=== PATIENT | male | born 1950 | race African-American/Black ===

== ENCOUNTER 2017-02-25 08:47 | Inpatient (IN) | payer BC, MEDICARE ==
[2017-02-25] VITALS (42 sets, daily range): BP systolic 61–139; BP diastolic 36–99
[~2017-02-25] VITALS: Ht 172.7 cm; Wt 59.0 kg
[~2017-02-25 08:47] MED LIST: ASPI-986 PO
[2017-02-25] MEDS ORDERED: DEXTROSE 50% WATER 50ML SYRINGE IV ONE ×3 (09:00→09:03)
[2017-02-25] MEDS ORDERED: SODIUM CHLORIDE 0.9% 1,000 ML IV ONE ×2 (09:10→10:11)
[2017-02-25 09:19] LABS: MEAN CORPUSCULAR HEMOGLOBIN 31.9 pg (28.0-32.0); MEAN CORPUSCULAR VOLUME 106.5 fL (80.0-94.0); MEAN PLATELET VOLUME 8.1 fl (7.4-10.4); PLATELET 131 x1000/uL (130-400); RED BLOOD CELL COUNT 2.81 mill/uL (4.7-6.1); RED CELL DISTRIBUTION WIDTH 17.9 % (11.6-14.6)
[2017-02-25 09:27] LABS: INR 1.4; PROTHROMBIN TIME 14.8 sec (9.4-11.6)
[2017-02-25] MEDS ORDERED: VANCOMYCIN 1 G PREMIX 200 ML IV ONE (09:30)
[2017-02-25] MEDS ORDERED: PIPERACILLIN/TAZ 3.375G PREMIX 50 ML IV ONE (09:30)
[2017-02-25 09:36] LABS: CHLORIDE 86 mEq/L (98-107)
[2017-02-25 09:40] LABS: NUCLEATED RED BLOOD CELLS 85 /100 WBC; PLATELET ESTIMATE NORMAL
[2017-02-25 09:48] LABS: CARBON DIOXIDE 9 mEq/L (21-32)
[2017-02-25] MEDS ORDERED: NOREPINEPHRINE 4 MG in DEXT 5% WATER 250 ML IV STA (10:20)
[2017-02-25] MEDS ORDERED: NOREPINEPHRINE 4 MG in DEXT 5% WATER 250 ML IV NR (10:30)
[2017-02-25] MEDS ORDERED: IPRATROPIUM/ALBUTEROL 0.5-3(2.5)MG/3ML NEB INH PRN (15:00)
[2017-02-25] MEDS ORDERED: ONDANSETRON HCL 4MG/2ML VIAL IV PRN (15:00)
[2017-02-25] MEDS: NOREPINEPHRINE 8 MG in DEXT 5% WATER 242 ML IV PRN ×2 (15:04→21:02)
[2017-02-25] MEDS: BLOOD SUGAR DIAGNOSTIC STRIP TEST SCH ×3 (15:26→23:13)
[2017-02-25] MEDS ORDERED: SODIUM CHLORIDE 0.9% 1,000 ML IV SCH ×2 (15:45→17:54)
[2017-02-25] MEDS: PANTOPRAZOLE SODIUM 40 MG/VIAL IV SCH ×2 (15:51→20:10)
[2017-02-25 15:57] LABS: CHLORIDE 96 mEq/L (98-107)
[2017-02-25 16:01] LABS: PHOSPHORUS 6.1 mg/dL (2.5-4.9)
[2017-02-25 16:08] LABS: CARBON DIOXIDE 9 mEq/L (21-32)
[2017-02-25 16:27] LABS: BG BASE EXCESS -17.9 mmol/L (-2.0-2.0); BG CARBOXYHEMOGLOBIN 0.1 % (0.5-1.5); BG DEOXYHEMOGLOBIN 5.2 % (0.0-5.0); BG FRACTION INSPIRED OXYGEN 21; BG METHEMOGLOBIN 0.5 % (0.0-1.5); BG OXYGEN SATURATION 94.8 % (92.0-98.5); BG OXYHEMOGLOBIN 94.2 % (94.0-97.0); BG PCO2 16.1 mmHg (35.0-45.0); BG PH 7.254 (7.350-7.450); BG PO2 76.1 mmHg (75.0-100.0); BG SAMPLE SITE LEFT BRACHIAL; BG TOTAL HEMOGLOBIN 11.3 g/dL (12.0-18.0); BG VENT MODE ROOM AIR
[2017-02-25] MEDS ORDERED: THIAMINE HCL 100 MG in SODIUM CHLORIDE 0.9% 49 ML IV NR (17:00)
[2017-02-25 17:19] LABS: MEAN CORPUSCULAR HEMOGLOBIN 32.5 pg (28.0-32.0); MEAN PLATELET VOLUME 8.4 fl (7.4-10.4); PLATELET 126 x1000/uL (130-400); RED BLOOD CELL COUNT 3.43 mill/uL (4.7-6.1); RED CELL DISTRIBUTION WIDTH 17.4 % (11.6-14.6)
[2017-02-25] MEDS ORDERED: MAGNESIUM 1 G PREMIX 100 ML IV NR (17:20)
[2017-02-25 17:28] LABS: HEMOGLOBIN. 11.2 g/dL (14.0-18.0)
[2017-02-25 17:29] LABS: HEMATOCRIT. 34.9 % (42.0-52.0); MEAN CORPUSCULAR VOLUME 101.7 fL (80.0-94.0)
[2017-02-25] MEDS ORDERED: SODIUM BICARBONATE 8.4% 1 MEQ/ML 50ML SYR IV NR (17:30)
[2017-02-25] MEDS ORDERED: LORAZEPAM 2MG/ML CPJ IV PRN (17:30)
[2017-02-25] MEDS: PIPERACILLIN/TAZ 2.25G PREMIX 50 ML IV SCH (17:46)
[2017-02-25] MEDS: INSULIN LISPRO 100 UNITS/ML SUBCUT SCH ×2 (17:48→20:21)
[2017-02-25] MEDS ORDERED: SODIUM BICARBONATE 100 MEQ in DEXTROSE 5% WATER 1,000 ML IV SCH (18:00)
[2017-02-25 18:03] LABS: HEPATITIS B SURFACE ANTIGEN NEGATIVE
[2017-02-25 18:31] LABS: HEPATITIS B CORE AB IGM NEGATIVE
[2017-02-25 18:33] LABS: HEPATITIS A AB IGM NEGATIVE (NEGATIVE)
[2017-02-25] MEDS: OCTREOTIDE 1,000 MCG in SODIUM CHLORIDE 0.9% 100 ML IV SCH (18:47)
[2017-02-25 20:15] LABS: NUCLEATED RED BLOOD CELLS 276 /100 WBC
[2017-02-25 20:16] LABS: PLATELET ESTIMATE DECREASED
[2017-02-25] MEDS: SODIUM BICARBONATE 100 MEQ in DEXTROSE 5% WATER 1,000 ML IV SCH (20:31)
[2017-02-25] MEDS ORDERED: NOREPINEPHRINE 16 MG in DEXT 5% WATER 484 ML IV PRN (20:45)
[2017-02-25 20:47] LABS: HEMATOCRIT 31.8 % (42.0-52.0); HEMOGLOBIN 10.5 g/dL (14.0-18.0)
[2017-02-25] MEDS: METRONIDAZOLE 500 MG PREMIX 100 ML IV SCH (21:14)
[2017-02-26] VITALS (94 sets, daily range): BP systolic 75–151; BP diastolic 50–110
[2017-02-26] MEDS: PIPERACILLIN/TAZ 2.25G PREMIX 50 ML IV SCH ×5 (00:02→23:25)
[2017-02-26 00:56] LABS: CLARITY URINE TURBID (CLEAR); COLOR URINE DARK YELLOW (YELLOW); GLUCOSE URINE TRACE (NEGATIVE); KETONES URINE 1+ (NEGATIVE); LEUKOCYTE ESTERASE URINE 1+ (NEGATIVE); NITRITE URINE NEGATIVE (NEGATIVE); OCCULT BLOOD URINE 3+ (NEGATIVE); PROTEIN URINE 3+ (NEGATIVE); SPECIFIC GRAVITY URINE 1.024 (1.005-1.030)
[2017-02-26 00:58] LABS: HEMATOCRIT 30.2 % (42.0-52.0); HEMOGLOBIN 10.2 g/dL (14.0-18.0)
[2017-02-26] MEDS: BLOOD SUGAR DIAGNOSTIC STRIP TEST SCH ×6 (03:19→23:21)
[2017-02-26 04:15] LABS: HEMATOCRIT. 29.9 % (42.0-52.0); HEMOGLOBIN. 9.8 g/dL (14.0-18.0); MEAN CORPUSCULAR HEMOGLOBIN 32.2 pg (28.0-32.0); MEAN CORPUSCULAR VOLUME 98.3 fL (80.0-94.0); MEAN PLATELET VOLUME 8.5 fl (7.4-10.4); PLATELET 91 x1000/uL (130-400); RED BLOOD CELL COUNT 3.04 mill/uL (4.7-6.1); RED CELL DISTRIBUTION WIDTH 17.9 % (11.6-14.6)
[2017-02-26 04:17] LABS: CHLORIDE 94 mEq/L (98-107)
[2017-02-26 04:33] LABS: CARBON DIOXIDE 23 mEq/L (21-32)
[2017-02-26 04:47] LABS: CREATINE KINASE 1462 IU/L (39-308)
[2017-02-26 04:49] LABS: PHOSPHORUS 0.8 mg/dL (2.5-4.9)
[2017-02-26] MEDS: METRONIDAZOLE 500 MG PREMIX 100 ML IV SCH ×2 (05:56→13:23)
[2017-02-26 06:18] LABS: NUCLEATED RED BLOOD CELLS 87 /100 WBC
[2017-02-26 06:19] LABS: PLATELET ESTIMATE DECREASED
[2017-02-26 06:45] LABS: BG BASE EXCESS -0.3 mmol/L (-2.0-2.0); BG CARBOXYHEMOGLOBIN 0.6 % (0.5-1.5); BG DEOXYHEMOGLOBIN 6.1 % (0.0-5.0); BG FRACTION INSPIRED OXYGEN 21; BG HCO3 ACT 22.1 mmol/L (22.0-26.0); BG METHEMOGLOBIN 0.9 % (0.0-1.5); BG OXYGEN SATURATION 93.8 % (92.0-98.5); BG OXYHEMOGLOBIN 92.4 % (94.0-97.0); BG PCO2 28.7 mmHg (35.0-45.0); BG PH 7.505 (7.350-7.450); BG PO2 65.2 mmHg (75.0-100.0); BG SAMPLE SITE RIGHT BRACHIAL; BG TOTAL HEMOGLOBIN 9.9 g/dL (12.0-18.0); BG VENT MODE ROOM AIR
[2017-02-26] MEDS: SODIUM BICARBONATE 100 MEQ in DEXTROSE 5% WATER 1,000 ML IV SCH (07:49)
[2017-02-26] MEDS ORDERED: SODIUM CHLORIDE 0.9% 1,000 ML IV SCH (08:00)
[2017-02-26] MEDS: PANTOPRAZOLE SODIUM 40 MG/VIAL IV SCH ×2 (08:24→20:17)
[2017-02-26] MEDS: LORAZEPAM 2MG/ML CPJ IV SCH ×3 (08:24→19:00)
[2017-02-26] MEDS: INSULIN LISPRO 100 UNITS/ML SUBCUT SCH ×4 (08:26→23:25)
[2017-02-26] MEDS: [UNRECOGNIZED DRUG - REMARK] IV SCH ×3 (09:08)
[2017-02-26] MEDS ORDERED: POTASSIUM PHOS,M-BASIC-D-BASIC 15 MMOL in DEXT 5% WATER 245 ML IV NR (09:30)
[2017-02-26] MEDS ORDERED: MAGNESIUM 2 G PREMIX 50 ML IV NR (09:30)
[2017-02-26 09:59] LABS: T4 FREE 1.59 ng/dL (0.76-1.46)
[2017-02-26 10:07] LABS: HEMOGLOBIN 9.6 g/dL (14.0-18.0)
[2017-02-26 10:21] LABS: AMMONIA 31 uMol/L (<32)
[2017-02-26 12:45] LABS: HEMATOCRIT 30.2 % (42.0-52.0); HEMOGLOBIN 10.1 g/dL (14.0-18.0)
[2017-02-26 13:07] LABS: CLARITY URINE CLOUDY (CLEAR); COLOR URINE YELLOW (YELLOW); GLUCOSE URINE TRACE (NEGATIVE); KETONES URINE NEGATIVE (NEGATIVE); LEUKOCYTE ESTERASE URINE NEGATIVE (NEGATIVE); NITRITE URINE NEGATIVE (NEGATIVE); OCCULT BLOOD URINE 3+ (NEGATIVE); PROTEIN URINE 1+ (NEGATIVE); SPECIFIC GRAVITY URINE 1.007 (1.005-1.030); UROBILINOGEN URINE 0.2 E.U./dL (0.2-1.0)
[2017-02-26] MEDS: NICOTINE 21MG PATCH TD SCH (13:23)
[2017-02-26] MEDS: OCTREOTIDE 1,000 MCG in SODIUM CHLORIDE 0.9% 100 ML IV SCH (14:34)
[2017-02-26] MEDS: PHENYLEPHRINE 20 MG in DEXT 5% WATER 248 ML IV PRN ×2 (14:34→21:08)
[2017-02-26 15:36] LABS: HEMATOCRIT. 30.6 % (42.0-52.0); HEMOGLOBIN. 10.3 g/dL (14.0-18.0); MEAN CORPUSCULAR HEMOGLOBIN 32.5 pg (28.0-32.0); MEAN CORPUSCULAR VOLUME 97.2 fL (80.0-94.0); MEAN PLATELET VOLUME 8.9 fl (7.4-10.4); PLATELET 88 x1000/uL (130-400); RED BLOOD CELL COUNT 3.15 mill/uL (4.7-6.1); RED CELL DISTRIBUTION WIDTH 17.8 % (11.6-14.6)
[2017-02-26 15:51] LABS: CARBON DIOXIDE 23 mEq/L (21-32); CHLORIDE 94 mEq/L (98-107); CREATINE KINASE 959 IU/L (39-308); PHOSPHORUS 1.8 mg/dL (2.5-4.9); TROPONIN I 0.04 ng/mL (0.00-0.04)
[2017-02-26 16:55] LABS: NUCLEATED RED BLOOD CELLS 8 /100 WBC; PLATELET ESTIMATE DECREASED
[2017-02-26] MEDS: DEXT 5%/0.45% NACL KCL 10MEQ/L 1,000 ML IV SCH (17:36)
[2017-02-26] MEDS ORDERED: POTASSIUM PHOS,M-BASIC-D-BASIC 20 MMOL in DEXT 5% WATER 243.3333 ML IV NR (18:30)
[2017-02-26] MEDS ORDERED: POTASSIUM CHLORIDE INJ 40 MEQ in DEXT 5% WATER 250 ML IV NR (18:30)
[2017-02-26 23:41] LABS: CREATINE KINASE MB FRACTION 7.1 ng/mL (0.5-3.6); TROPONIN I 0.03 ng/mL (0.00-0.04)
[2017-02-27] VITALS (87 sets, daily range): BP systolic 85–136; BP diastolic 52–85
[2017-02-27] MEDS: DEXT 5%/0.45% NACL KCL 10MEQ/L 1,000 ML IV SCH ×2 (01:49→09:53)
[2017-02-27] MEDS: LORAZEPAM 2MG/ML CPJ IV SCH ×4 (02:26→20:00)
[2017-02-27] MEDS: PHENYLEPHRINE 40 MG in DEXT 5% WATER 496 ML IV PRN ×2 (03:42→22:25)
[2017-02-27] MEDS: BLOOD SUGAR DIAGNOSTIC STRIP TEST SCH ×3 (05:21→18:29)
[2017-02-27] MEDS: PIPERACILLIN/TAZ 2.25G PREMIX 50 ML IV SCH ×4 (05:25→22:23)
[2017-02-27] MEDS: INSULIN LISPRO 100 UNITS/ML SUBCUT SCH ×2 (05:27→12:44)
[2017-02-27 06:02] LABS: CREATINE KINASE MB FRACTION 5.9 ng/mL (0.5-3.6); TROPONIN I 0.03 ng/mL (0.00-0.04)
[2017-02-27 06:35] LABS: HEMOGLOBIN. 9.8 g/dL (14.0-18.0); MEAN CORPUSCULAR HEMOGLOBIN 32.1 pg (28.0-32.0); MEAN CORPUSCULAR VOLUME 95.5 fL (80.0-94.0); PLATELET 75 x1000/uL (130-400); RED BLOOD CELL COUNT 3.04 mill/uL (4.7-6.1); RED CELL DISTRIBUTION WIDTH 17.8 % (11.6-14.6)
[2017-02-27 08:05] LABS: PHOSPHORUS 2.2 mg/dL (2.5-4.9)
[2017-02-27] MEDS ORDERED: POTASSIUM PHOS,M-BASIC-D-BASIC 15 MMOL in DEXT 5% WATER 245 ML IV NR (09:30)
[2017-02-27] MEDS: OCTREOTIDE 1,000 MCG in SODIUM CHLORIDE 0.9% 100 ML IV SCH (09:53)
[2017-02-27] MEDS: [UNRECOGNIZED DRUG - REMARK] IV SCH ×3 (09:53)
[2017-02-27] MEDS: PANTOPRAZOLE SODIUM 40 MG/VIAL IV SCH ×2 (09:53→22:13)
[2017-02-27] MEDS: NICOTINE 21MG PATCH TD SCH (09:53)
[2017-02-27] MEDS: METRONIDAZOLE 500 MG PREMIX 100 ML IV SCH ×2 (09:55→18:49)
[2017-02-27 09:58] LABS: NUCLEATED RED BLOOD CELLS 1 /100 WBC; PLATELET ESTIMATE DECREASED
[2017-02-27] MEDS ORDERED: SIMETHICONE 40 MG/0.6 ML 30ML ONE (11:48)
[2017-02-27] MEDS ORDERED: SODIUM CHLORIDE 0.9% 10ML VIAL ONE (11:48)
[2017-02-27 11:59] LABS: INR 1.4; PARTIAL THROMBOPLASTIN TIME 49.2 sec (23.4-31.0); PROTHROMBIN TIME 14.8 sec (9.4-11.6)
[2017-02-27] MEDS ORDERED: FENTANYL CITRATE/PF 50MCG/ML 2ML VIAL ONE (14:09)
[2017-02-27] MEDS ORDERED: MIDAZOLAM HCL 5 MG/5 ML VIAL ONE (14:09)
[2017-02-27] MEDS ORDERED: KCL 20MEQ/100ML PREMIX 100 ML IV NR (17:00)
[2017-02-27] MEDS ORDERED: DEXT 5%/0.45% NACL KCL 30MEQ/L 1,000 ML IV SCH (17:00)
[2017-02-27] MEDS ORDERED: INSULIN LISPRO 100 UNITS/ML SUBCUT SCH (18:00)
[2017-02-27] MEDS ORDERED: POTASSIUM CHLORIDE INJ 30 MEQ in SODIUM CHLORIDE 0.9% 1,000 ML IV SCH (18:00)
[2017-02-27] MEDS: VANCOMYCIN HCL 1000 MG/20 ML ORAL PO SCH ×2 (18:49→23:30)
[2017-02-28] VITALS (70 sets, daily range): BP systolic 73–135; BP diastolic 50–95
[2017-02-28] MEDS: PIPERACILLIN/TAZ 2.25G PREMIX 50 ML IV SCH ×5 (00:04→23:08)
[2017-02-28] MEDS: VANCOMYCIN HCL 1000 MG/20 ML ORAL PO SCH ×5 (00:05→23:08)
[2017-02-28] MEDS: DEXTROSE 50% WATER 50ML SYRINGE IV PRN (00:23)
[2017-02-28] MEDS: POTASSIUM CHLORIDE INJ 20 MEQ in DEXT 5%/0.9% NACL 1,000 ML IV SCH ×3 (00:35→17:10)
[2017-02-28] MEDS: METRONIDAZOLE 500 MG PREMIX 100 ML IV SCH ×3 (01:38→17:08)
[2017-02-28] MEDS: LORAZEPAM 2MG/ML CPJ IV SCH ×4 (01:54→19:53)
[2017-02-28] MEDS: BLOOD SUGAR DIAGNOSTIC STRIP TEST SCH ×6 (04:00→19:53)
[2017-02-28] MEDS: INSULIN LISPRO 100 UNITS/ML SUBCUT SCH ×6 (04:00→21:36)
[2017-02-28 05:27] LABS: HEMATOCRIT 28.5 % (42.0-52.0); HEMOGLOBIN 9.7 g/dL (14.0-18.0); MEAN CORPUSCULAR HEMOGLOBIN 32.8 pg (28.0-32.0); MEAN CORPUSCULAR VOLUME 96.7 fL (80.0-94.0); PLATELET 63 x1000/uL (130-400); RED BLOOD CELL COUNT 2.95 mill/uL (4.7-6.1); RED CELL DISTRIBUTION WIDTH 17.8 % (11.6-14.6)
[2017-02-28] MEDS: NICOTINE 21MG PATCH TD SCH (08:17)
[2017-02-28] MEDS: PANTOPRAZOLE SODIUM 40 MG/VIAL IV SCH ×2 (08:17→21:36)
[2017-02-28] MEDS: [UNRECOGNIZED DRUG - REMARK] IV SCH ×3 (09:52)
[2017-02-28 09:56] LABS: PHOSPHORUS 1.2 mg/dL (2.5-4.9)
[2017-02-28] MEDS ORDERED: MAGNESIUM 2 G PREMIX 50 ML IV NR (11:30)
[2017-02-28] MEDS ORDERED: POTASSIUM PHOS,M-BASIC-D-BASIC 15 MMOL in DEXT 5% WATER 245 ML IV NR (11:30)
[2017-03-01] VITALS (89 sets, daily range): BP systolic 80–145; BP diastolic 46–110
[2017-03-01] MEDS: LORAZEPAM 2MG/ML CPJ IV SCH ×6 (01:17→21:27)
[2017-03-01] MEDS: POTASSIUM CHLORIDE INJ 20 MEQ in DEXT 5%/0.9% NACL 1,000 ML IV SCH ×2 (01:17→09:23)
[2017-03-01] MEDS: METRONIDAZOLE 500 MG PREMIX 100 ML IV SCH ×3 (01:17→17:01)
[2017-03-01] MEDS: INSULIN LISPRO 100 UNITS/ML SUBCUT SCH ×6 (04:00→20:00)
[2017-03-01] MEDS: BLOOD SUGAR DIAGNOSTIC STRIP TEST SCH ×6 (04:00→20:00)
[2017-03-01 05:36] LABS: PHOSPHORUS 1.2 mg/dL (2.5-4.9)
[2017-03-01] MEDS: VANCOMYCIN HCL 1000 MG/20 ML ORAL PO SCH ×3 (06:00→17:01)
[2017-03-01] MEDS: PIPERACILLIN/TAZ 2.25G PREMIX 50 ML IV SCH ×3 (06:09→17:01)
[2017-03-01 07:38] LABS: HEMATOCRIT. 30.2 % (42.0-52.0); HEMOGLOBIN. 10.2 g/dL (14.0-18.0); MEAN CORPUSCULAR HEMOGLOBIN 32.6 pg (28.0-32.0); MEAN CORPUSCULAR VOLUME 96.4 fL (80.0-94.0); MEAN PLATELET VOLUME 9.6 fl (7.4-10.4); PLATELET 67 x1000/uL (130-400); RED BLOOD CELL COUNT 3.13 mill/uL (4.7-6.1); RED CELL DISTRIBUTION WIDTH 18.1 % (11.6-14.6)
[2017-03-01] MEDS: NICOTINE 21MG PATCH TD SCH (08:31)
[2017-03-01] MEDS: PANTOPRAZOLE SODIUM 40 MG/VIAL IV SCH ×2 (08:31→21:11)
[2017-03-01] MEDS: [UNRECOGNIZED DRUG - REMARK] IV SCH ×3 (08:38)
[2017-03-01 09:17] LABS: NUCLEATED RED BLOOD CELLS 3 /100 WBC
[2017-03-01 09:19] LABS: PLATELET ESTIMATE SLIGHTLY DECREASED
[2017-03-01] MEDS ORDERED: POTASSIUM PHOS,M-BASIC-D-BASIC 20 MMOL in DEXT 5% WATER 243.3333 ML IV SCH (10:00)
[2017-03-01] MEDS: IPRATROPIUM/ALBUTEROL 0.5-3(2.5)MG/3ML NEB HHN SCH ×2 (11:21→19:58)
[2017-03-01] MEDS: PHENYLEPHRINE 40 MG in DEXT 5% WATER 496 ML IV PRN (13:17)
[2017-03-01] MEDS: MIDODRINE HCL 5MG TABLET NG SCH (16:52)
[2017-03-01] MEDS: DIPHENHYDRAMINE 50MG/ML VIAL IV PRN (17:06)
[2017-03-02] VITALS (28 sets, daily range): BP systolic 91–152; BP diastolic 47–99
[2017-03-02] MEDS: PIPERACILLIN/TAZ 2.25G PREMIX 50 ML IV SCH ×4 (00:09→18:08)
[2017-03-02] MEDS: VANCOMYCIN HCL 1000 MG/20 ML ORAL PO SCH ×4 (00:09→18:15)
[2017-03-02] MEDS: DEXT 5%/0.9% NACL KCL 20MEQ/L 1,000 ML IV SCH ×2 (01:39→11:00)
[2017-03-02] MEDS: METRONIDAZOLE 500 MG PREMIX 100 ML IV SCH ×3 (01:39→18:17)
[2017-03-02] MEDS: LORAZEPAM 2MG/ML CPJ IV SCH ×4 (01:39→19:56)
[2017-03-02] MEDS: IPRATROPIUM/ALBUTEROL 0.5-3(2.5)MG/3ML NEB HHN SCH ×4 (02:18→20:10)
[2017-03-02] MEDS: BLOOD SUGAR DIAGNOSTIC STRIP TEST SCH ×4 (05:57→18:08)
[2017-03-02] MEDS: INSULIN LISPRO 100 UNITS/ML SUBCUT SCH ×4 (06:40→18:00)
[2017-03-02 06:42] LABS: HEMATOCRIT. 26.6 % (42.0-52.0); HEMOGLOBIN. 8.8 g/dL (14.0-18.0); MEAN CORPUSCULAR HEMOGLOBIN 32.2 pg (28.0-32.0); MEAN CORPUSCULAR VOLUME 97.3 fL (80.0-94.0); RED BLOOD CELL COUNT 2.74 mill/uL (4.7-6.1); RED CELL DISTRIBUTION WIDTH 17.9 % (11.6-14.6)
[2017-03-02 07:15] LABS: PHOSPHORUS 1.6 mg/dL (2.5-4.9)
[2017-03-02 08:00] LABS: NUCLEATED RED BLOOD CELLS 8 /100 WBC
[2017-03-02 08:02] LABS: MEAN PLATELET VOLUME 10.6 fl (7.4-10.4); PLATELET 82 x1000/uL (130-400); PLATELET ESTIMATE DECREASED
[2017-03-02] MEDS: PANTOPRAZOLE SODIUM 40 MG/VIAL IV SCH ×2 (08:08→20:11)
[2017-03-02] MEDS: MULTIVITAMINS,THER W-MINERALS TABLET NG SCH (08:08)
[2017-03-02] MEDS: MIDODRINE HCL 5MG TABLET NG SCH ×2 (08:08→17:00)
[2017-03-02] MEDS: THIAMINE HCL 100MG TABLET NG SCH (08:08)
[2017-03-02] MEDS: NICOTINE 21MG PATCH TD SCH (08:09)
[2017-03-02] MEDS ORDERED: POTASSIUM PHOS,M-BASIC-D-BASIC 20 MMOL in DEXT 5% WATER 243.3333 ML IV NR (10:00)
[2017-03-02 12:25] LABS: TOTAL IRON BINDING CAPACITY 202 ug/dL (250-450)
[2017-03-02 13:19] LABS: FERRITIN 441 ng/mL (22-322)
[2017-03-02 14:33] LABS: VITAMIN B12 SERUM > 2000 pg/mL (211-911)
[2017-03-03] VITALS (12 sets, daily range): BP systolic 111–154; BP diastolic 72–109
[2017-03-03] MEDS: PIPERACILLIN/TAZ 2.25G PREMIX 50 ML IV SCH ×4 (00:21→17:24)
[2017-03-03] MEDS: VANCOMYCIN HCL 1000 MG/20 ML ORAL PO SCH ×4 (00:21→17:24)
[2017-03-03] MEDS: BLOOD SUGAR DIAGNOSTIC STRIP TEST SCH ×4 (00:21→17:24)
[2017-03-03] MEDS: IPRATROPIUM/ALBUTEROL 0.5-3(2.5)MG/3ML NEB HHN SCH ×4 (00:36→20:27)
[2017-03-03] MEDS: DEXT 5%/0.9% NACL KCL 20MEQ/L 1,000 ML IV SCH (01:02)
[2017-03-03] MEDS: LORAZEPAM 2MG/ML CPJ IV SCH ×4 (02:03→21:55)
[2017-03-03] MEDS: METRONIDAZOLE 500 MG PREMIX 100 ML IV SCH ×3 (02:03→18:03)
[2017-03-03] MEDS: INSULIN LISPRO 100 UNITS/ML SUBCUT SCH ×4 (05:29→17:24)
[2017-03-03 07:16] LABS: HEMATOCRIT. 27.7 % (42.0-52.0); HEMOGLOBIN. 9.4 g/dL (14.0-18.0); MEAN CORPUSCULAR HEMOGLOBIN 33.1 pg (28.0-32.0); MEAN CORPUSCULAR VOLUME 97.2 fL (80.0-94.0); MEAN PLATELET VOLUME 9.1 fl (7.4-10.4); PLATELET 100 x1000/uL (130-400); RED BLOOD CELL COUNT 2.85 mill/uL (4.7-6.1); RED CELL DISTRIBUTION WIDTH 18.2 % (11.6-14.6)
[2017-03-03] MEDS: PANTOPRAZOLE SODIUM 40 MG/VIAL IV SCH ×2 (08:36→21:55)
[2017-03-03] MEDS: NICOTINE 21MG PATCH TD SCH (08:36)
[2017-03-03] MEDS: CARVEDILOL 3.125 MG TABLET PO SCH (08:38)
[2017-03-03] MEDS: MULTIVITAMINS,THER W-MINERALS TABLET NG SCH (08:38)
[2017-03-03] MEDS: THIAMINE HCL 100MG TABLET NG SCH (08:39)
[2017-03-03] MEDS: MIDODRINE HCL 5MG TABLET NG SCH ×2 (08:39→16:51)
[2017-03-03 09:04] LABS: PHOSPHORUS 2.3 mg/dL (2.5-4.9)
[2017-03-03 10:39] LABS: NUCLEATED RED BLOOD CELLS 2 /100 WBC
[2017-03-03 10:45] LABS: PLATELET ESTIMATE SLIGHTLY DECREASED
[2017-03-03 12:30] LABS: AMMONIA < 25 uMol/L (<32)
[2017-03-03] MEDS: SODIUM CHLORIDE 0.45% 1,000 ML IV SCH (13:56)
[2017-03-03] MEDS ORDERED: POTASSIUM-SODIUM PHOSPHATE POWDER PACKET PO NR (20:30)
[2017-03-04] VITALS (12 sets, daily range): BP systolic 119–169; BP diastolic 77–101
[2017-03-04] MEDS ORDERED: METOCLOPRAMIDE HCL 5MG TABLET PO SCH
[2017-03-04] MEDS ORDERED: METOCLOPRAMIDE HCL 10MG/2ML VIAL IV SCH
[2017-03-04] MEDS: VANCOMYCIN HCL 1000 MG/20 ML ORAL PO SCH ×4 (00:07→17:15)
[2017-03-04] MEDS: PIPERACILLIN/TAZ 2.25G PREMIX 50 ML IV SCH ×4 (00:07→18:19)
[2017-03-04] MEDS: METOCLOPRAMIDE HCL 10MG/2ML VIAL IV SCH ×4 (00:07→17:13)
[2017-03-04] MEDS: BLOOD SUGAR DIAGNOSTIC STRIP TEST SCH ×5 (00:09→23:51)
[2017-03-04] MEDS: DEXTROSE 50% WATER 50ML SYRINGE IV PRN (00:33)
[2017-03-04] MEDS: IPRATROPIUM/ALBUTEROL 0.5-3(2.5)MG/3ML NEB HHN SCH ×4 (01:32→20:21)
[2017-03-04] MEDS: METRONIDAZOLE 500 MG PREMIX 100 ML IV SCH ×3 (01:37→17:12)
[2017-03-04] MEDS: LORAZEPAM 2MG/ML CPJ IV SCH ×4 (01:37→21:26)
[2017-03-04] MEDS: SODIUM CHLORIDE 0.45% 1,000 ML IV SCH ×2 (03:52→18:19)
[2017-03-04] MEDS: INSULIN LISPRO 100 UNITS/ML SUBCUT SCH ×4 (06:00→17:45)
[2017-03-04 07:14] LABS: HEMOGLOBIN. 9.6 g/dL (14.0-18.0); MEAN CORPUSCULAR HEMOGLOBIN 32.7 pg (28.0-32.0); MEAN CORPUSCULAR VOLUME 99.2 fL (80.0-94.0); MEAN PLATELET VOLUME 9.3 fl (7.4-10.4); PLATELET 122 x1000/uL (130-400); RED BLOOD CELL COUNT 2.92 mill/uL (4.7-6.1); RED CELL DISTRIBUTION WIDTH 18.9 % (11.6-14.6)
[2017-03-04] MEDS: PANTOPRAZOLE SODIUM 40 MG/VIAL IV SCH ×2 (10:16→21:43)
[2017-03-04] MEDS: THIAMINE HCL 100MG TABLET NG SCH (10:16)
[2017-03-04] MEDS: CARVEDILOL 3.125 MG TABLET PO SCH (10:16)
[2017-03-04] MEDS: MIDODRINE HCL 5MG TABLET NG SCH ×2 (10:16→17:12)
[2017-03-04] MEDS: MULTIVITAMINS,THER W-MINERALS TABLET NG SCH (10:16)
[2017-03-04] MEDS: NICOTINE 21MG PATCH TD SCH (13:15)
[2017-03-04 13:23] LABS: NUCLEATED RED BLOOD CELLS 1 /100 WBC
[2017-03-04 13:27] LABS: PLATELET ESTIMATE SLIGHTLY DECREASED
[2017-03-05] VITALS (12 sets, daily range): BP systolic 131–166; BP diastolic 68–113
[2017-03-05] MEDS: METOCLOPRAMIDE HCL 10MG/2ML VIAL IV SCH ×4 (00:06→18:21)
[2017-03-05] MEDS: VANCOMYCIN HCL 1000 MG/20 ML ORAL PO SCH ×4 (00:29→17:22)
[2017-03-05] MEDS: IPRATROPIUM/ALBUTEROL 0.5-3(2.5)MG/3ML NEB HHN SCH ×4 (01:47→20:36)
[2017-03-05] MEDS: LORAZEPAM 2MG/ML CPJ IV SCH ×2 (03:15→09:16)
[2017-03-05] MEDS: BLOOD SUGAR DIAGNOSTIC STRIP TEST SCH ×3 (06:00→18:16)
[2017-03-05] MEDS: INSULIN LISPRO 100 UNITS/ML SUBCUT SCH ×4 (06:00→18:00)
[2017-03-05 08:48] LABS: AMYLASE 64 IU/L (25-115)
[2017-03-05] MEDS: CARVEDILOL 3.125 MG TABLET PO SCH (09:17)
[2017-03-05] MEDS: NICOTINE 21MG PATCH TD SCH (09:18)
[2017-03-05] MEDS: MIDODRINE HCL 5MG TABLET NG SCH ×2 (09:18→17:00)
[2017-03-05] MEDS: THIAMINE HCL 100MG TABLET NG SCH (09:18)
[2017-03-05] MEDS: MULTIVITAMINS,THER W-MINERALS TABLET NG SCH (09:18)
[2017-03-05] MEDS: PANTOPRAZOLE SODIUM 40 MG/VIAL IV SCH ×2 (09:23→20:47)
[2017-03-05] MEDS: SODIUM CHLORIDE 0.45% 1,000 ML IV SCH (10:13)
[2017-03-05] MEDS: CEFAZOLIN 1000MG PREMIX 50 ML IV SCH (17:13)
[2017-03-05] MEDS: DEXT 5%/0.45% NACL KCL 20MEQ/L 1,000 ML IV SCH (20:47)
[2017-03-06] VITALS (15 sets, daily range): BP systolic 136–165; BP diastolic 86–103
[2017-03-06] MEDS: CEFAZOLIN 1000MG PREMIX 50 ML IV SCH ×4 (00:10→23:29)
[2017-03-06] MEDS: METOCLOPRAMIDE HCL 10MG/2ML VIAL IV SCH ×5 (00:10→23:31)
[2017-03-06] MEDS: IPRATROPIUM/ALBUTEROL 0.5-3(2.5)MG/3ML NEB HHN SCH ×4 (01:25→20:10)
[2017-03-06] MEDS: LORAZEPAM 2MG/ML CPJ IV PRN (01:47)
[2017-03-06] MEDS: BLOOD SUGAR DIAGNOSTIC STRIP TEST SCH ×5 (05:43→23:33)
[2017-03-06] MEDS: VANCOMYCIN HCL 1000 MG/20 ML ORAL PO SCH ×5 (05:46→23:33)
[2017-03-06] MEDS: INSULIN LISPRO 100 UNITS/ML SUBCUT SCH ×5 (05:53→23:38)
[2017-03-06 06:36] LABS: BASOPHILS % 0.7 % (0.0-2.0); EOSINOPHILS % 0.6 % (0.0-5.0); HEMATOCRIT. 26.5 % (42.0-52.0); HEMOGLOBIN. 8.9 g/dL (14.0-18.0); LYMPHOCYTES % 17.7 % (20.0-50.0); MEAN CORPUSCULAR VOLUME 95.6 fL (80.0-94.0); MEAN PLATELET VOLUME 8.7 fl (7.4-10.4); MONOCYTES % 13.1 % (2.0-8.0); NEUTROPHILS % 67.9 % (40.0-76.0); PLATELET 253 x1000/uL (130-400); RED BLOOD CELL COUNT 2.77 mill/uL (4.7-6.1); RED CELL DISTRIBUTION WIDTH 18.4 % (11.6-14.6)
[2017-03-06 07:55] LABS: AMYLASE 52 IU/L (25-115); CARBON DIOXIDE 21 mEq/L (21-32); CHLORIDE 114 mEq/L (98-107)
[2017-03-06 08:03] LABS: INR 1.3; PARTIAL THROMBOPLASTIN TIME 33.8 sec (23.4-31.0); PROTHROMBIN TIME 13.9 sec (9.4-11.6)
[2017-03-06] MEDS: DEXT 5%/0.45% NACL KCL 20MEQ/L 1,000 ML IV SCH (08:25)
[2017-03-06] MEDS: MULTIVITAMINS,THER W-MINERALS TABLET NG SCH (09:00)
[2017-03-06] MEDS: PANTOPRAZOLE SODIUM 40 MG/VIAL IV SCH ×2 (09:00→22:52)
[2017-03-06] MEDS: MIDODRINE HCL 5MG TABLET NG SCH ×2 (09:00→17:00)
[2017-03-06] MEDS: THIAMINE HCL 100MG TABLET NG SCH (09:00)
[2017-03-06] MEDS: NICOTINE 21MG PATCH TD SCH (10:51)
[2017-03-06] MEDS: CARVEDILOL 3.125 MG TABLET PO SCH (10:51)
[2017-03-06] MEDS ORDERED: FENTANYL CITRATE/PF 50MCG/ML 2ML VIAL ONE (16:07)
[2017-03-06] MEDS ORDERED: MIDAZOLAM HCL 5 MG/5 ML VIAL ONE (16:07)
[2017-03-06] MEDS ORDERED: MIDAZOLAM HCL 5 MG/5 ML VIAL IV ONE (16:27)
[2017-03-06] MEDS: ATORVASTATIN CALCIUM 20MG TABLET PO SCH (21:00)
[2017-03-07] VITALS (12 sets, daily range): BP systolic 136–195; BP diastolic 92–116
[2017-03-07] MEDS: IPRATROPIUM/ALBUTEROL 0.5-3(2.5)MG/3ML NEB HHN SCH ×4 (02:15→21:04)
[2017-03-07] MEDS: INSULIN LISPRO 100 UNITS/ML SUBCUT SCH ×3 (06:00→12:00)
[2017-03-07] MEDS: VANCOMYCIN HCL 1000 MG/20 ML ORAL PO SCH ×3 (06:00→18:01)
[2017-03-07] MEDS: CEFAZOLIN 1000MG PREMIX 50 ML IV SCH ×3 (06:28→21:48)
[2017-03-07] MEDS: METOCLOPRAMIDE HCL 10MG/2ML VIAL IV SCH ×3 (06:30→18:01)
[2017-03-07] MEDS: BLOOD SUGAR DIAGNOSTIC STRIP TEST SCH ×3 (06:30→18:00)
[2017-03-07] MEDS: DIPHENHYDRAMINE 50MG/ML VIAL IV PRN ×2 (06:32→20:26)
[2017-03-07 08:26] LABS: AMYLASE 69 IU/L (25-115)
[2017-03-07] MEDS: MIDODRINE HCL 5MG TABLET NG SCH ×2 (08:49→17:00)
[2017-03-07] MEDS: MULTIVITAMINS,THER W-MINERALS TABLET NG SCH (09:48)
[2017-03-07] MEDS: THIAMINE HCL 100MG TABLET NG SCH (09:48)
[2017-03-07] MEDS: CARVEDILOL 3.125 MG TABLET PO SCH (09:48)
[2017-03-07] MEDS: PANTOPRAZOLE SODIUM 40 MG/VIAL IV SCH ×2 (09:48→21:48)
[2017-03-07] MEDS: NICOTINE 21MG PATCH TD SCH (09:52)
[2017-03-07] MEDS: DEXT 5%/0.45% NACL KCL 20MEQ/L 1,000 ML IV SCH (11:32)
[2017-03-07] MEDS ORDERED: DEXT 5%/0.45% NACL KCL 20MEQ/L 1,000 ML IV SCH (19:30)
[2017-03-07] MEDS: ATORVASTATIN CALCIUM 20MG TABLET PO SCH (21:48)
[2017-03-07] MEDS: LORAZEPAM 2MG/ML CPJ IV PRN (21:50)
[2017-03-08] VITALS (9 sets, daily range): BP systolic 101–141; BP diastolic 63–85
[2017-03-08] MEDS: BLOOD SUGAR DIAGNOSTIC STRIP TEST SCH ×4 (00:01→17:14)
[2017-03-08] MEDS: METOCLOPRAMIDE HCL 10MG/2ML VIAL IV SCH ×2 (00:04→06:27)
[2017-03-08] MEDS: VANCOMYCIN HCL 1000 MG/20 ML ORAL PO SCH ×4 (00:06→17:19)
[2017-03-08] MEDS: IPRATROPIUM/ALBUTEROL 0.5-3(2.5)MG/3ML NEB HHN SCH ×3 (01:59→20:04)
[2017-03-08] MEDS: INSULIN LISPRO 100 UNITS/ML SUBCUT SCH ×4 (06:00→17:18)
[2017-03-08] MEDS: CEFAZOLIN 1000MG PREMIX 50 ML IV SCH (06:25)
[2017-03-08 07:37] LABS: CARBON DIOXIDE 22 mEq/L (21-32); CHLORIDE 113 mEq/L (98-107)
[2017-03-08 08:35] LABS: BASOPHILS % 1.9 % (0.0-2.0); EOSINOPHILS % 1.7 % (0.0-5.0); HEMATOCRIT. 24.3 % (42.0-52.0); HEMOGLOBIN. 8.2 g/dL (14.0-18.0); LYMPHOCYTES % 25.5 % (20.0-50.0); MEAN CORPUSCULAR HEMOGLOBIN 31.6 pg (28.0-32.0); MEAN CORPUSCULAR VOLUME 93.4 fL (80.0-94.0); MEAN PLATELET VOLUME 8.5 fl (7.4-10.4); MONOCYTES % 13.2 % (2.0-8.0); NEUTROPHILS % 57.7 % (40.0-76.0); PLATELET 363 x1000/uL (130-400); RED CELL DISTRIBUTION WIDTH 18.4 % (11.6-14.6)
[2017-03-08] MEDS: THIAMINE HCL 100MG TABLET NG SCH (08:49)
[2017-03-08] MEDS: MULTIVITAMINS,THER W-MINERALS TABLET NG SCH (08:49)
[2017-03-08] MEDS: PANTOPRAZOLE SODIUM 40 MG/VIAL IV SCH (08:49)
[2017-03-08] MEDS: MIDODRINE HCL 5MG TABLET NG SCH ×2 (08:50→17:00)
[2017-03-08] MEDS: NICOTINE 21MG PATCH TD SCH (08:50)
[2017-03-08] MEDS: CARVEDILOL 3.125 MG TABLET PO SCH (08:50)
[2017-03-08] MEDS ORDERED: POTASSIUM CHLORIDE 20MEQ/PACKET GT SCH (10:45)
[2017-03-08] MEDS ORDERED: SIMETHICONE 80MG TABLET CHEW PO PRN (11:15)
[2017-03-08] MEDS ORDERED: SIMETHICONE 40 MG/0.6 ML 30ML ONE (11:26)
[2017-03-08] MEDS ORDERED: SODIUM CHLORIDE 0.9% 10ML VIAL ONE (11:26)
[2017-03-08] MEDS ORDERED: FAMOTIDINE 20MG TABLET GT SCH (12:00)
[2017-03-08] MEDS: METOCLOPRAMIDE HCL 5MG TABLET GT SCH ×2 (12:50→17:19)
[2017-03-08] MEDS: DEXT 5%/0.45% NACL KCL 20MEQ/L 1,000 ML IV SCH (13:29)
[2017-03-08] MEDS: SIMETHICONE 80MG TABLET CHEW GT PRN (17:19)
[2017-03-08] MEDS: FAMOTIDINE 20MG TABLET GT SCH (20:33)
[2017-03-08] MEDS: ATORVASTATIN CALCIUM 20MG TABLET GT SCH (20:33)
[2017-03-09] VITALS (8 sets, daily range): BP systolic 103–168; BP diastolic 62–95
[2017-03-09] MEDS: METOCLOPRAMIDE HCL 5MG TABLET GT SCH ×5 (00:17→23:34)
[2017-03-09] MEDS: VANCOMYCIN HCL 1000 MG/20 ML ORAL PO SCH ×5 (00:18→23:46)
[2017-03-09] MEDS: DEXT 5%/0.45% NACL KCL 20MEQ/L 1,000 ML IV SCH ×2 (00:24→09:00)
[2017-03-09] MEDS: IPRATROPIUM/ALBUTEROL 0.5-3(2.5)MG/3ML NEB HHN SCH ×4 (01:55→20:11)
[2017-03-09] MEDS: BLOOD SUGAR DIAGNOSTIC STRIP TEST SCH ×5 (06:00→23:45)
[2017-03-09] MEDS: INSULIN LISPRO 100 UNITS/ML SUBCUT SCH ×4 (06:00→17:16)
[2017-03-09 06:43] LABS: BASOPHILS % 3.6 % (0.0-2.0); EOSINOPHILS % 1.7 % (0.0-5.0); HEMATOCRIT. 26.2 % (42.0-52.0); HEMOGLOBIN. 8.7 g/dL (14.0-18.0); LYMPHOCYTES % 27.5 % (20.0-50.0); MEAN CORPUSCULAR HEMOGLOBIN 31.5 pg (28.0-32.0); MEAN CORPUSCULAR VOLUME 94.4 fL (80.0-94.0); MEAN PLATELET VOLUME 8.3 fl (7.4-10.4); MONOCYTES % 13.3 % (2.0-8.0); NEUTROPHILS % 53.9 % (40.0-76.0); PLATELET 378 x1000/uL (130-400); RED BLOOD CELL COUNT 2.77 mill/uL (4.7-6.1); RED CELL DISTRIBUTION WIDTH 18.7 % (11.6-14.6)
[2017-03-09 06:53] LABS: AMYLASE 58 IU/L (25-115); CARBON DIOXIDE 23 mEq/L (21-32); CHLORIDE 112 mEq/L (98-107)
[2017-03-09] MEDS: SIMETHICONE 80MG TABLET CHEW GT PRN (09:14)
[2017-03-09] MEDS: MULTIVITAMINS,THER W-MINERALS TABLET NG SCH (09:14)
[2017-03-09] MEDS: THIAMINE HCL 100MG TABLET NG SCH (09:14)
[2017-03-09] MEDS: FAMOTIDINE 20MG TABLET GT SCH ×2 (09:14→21:00)
[2017-03-09] MEDS: MIDODRINE HCL 5MG TABLET NG SCH ×2 (09:15→17:15)
[2017-03-09] MEDS: CARVEDILOL 3.125 MG TABLET GT SCH (09:15)
[2017-03-09] MEDS ORDERED: MAGNESIUM 4 G PREMIX 100 ML IV NR (10:00)
[2017-03-09] MEDS ORDERED: SODIUM CHLORIDE 0.9% 250 ML IV NR (16:00)
[2017-03-09] MEDS: ATORVASTATIN CALCIUM 20MG TABLET GT SCH (21:00)
[2017-03-09] MEDS: DIPHENHYDRAMINE 50MG/ML VIAL IV PRN (23:33)
[2017-03-10] VITALS (7 sets, daily range): BP systolic 106–135; BP diastolic 65–86
[2017-03-10] MEDS: IPRATROPIUM/ALBUTEROL 0.5-3(2.5)MG/3ML NEB HHN SCH ×4 (01:09→20:38)
[2017-03-10] MEDS: VANCOMYCIN HCL 1000 MG/20 ML ORAL PO SCH ×3 (05:22→17:52)
[2017-03-10] MEDS: METOCLOPRAMIDE HCL 5MG TABLET GT SCH ×3 (05:22→17:51)
[2017-03-10] MEDS: BLOOD SUGAR DIAGNOSTIC STRIP TEST SCH ×3 (05:35→17:52)
[2017-03-10] MEDS: INSULIN LISPRO 100 UNITS/ML SUBCUT SCH ×4 (05:35→18:00)
[2017-03-10 06:59] LABS: AMYLASE 60 IU/L (25-115)
[2017-03-10] MEDS: MULTIVITAMINS,THER W-MINERALS TABLET NG SCH (08:40)
[2017-03-10] MEDS: CARVEDILOL 3.125 MG TABLET GT SCH (08:41)
[2017-03-10] MEDS: THIAMINE HCL 100MG TABLET NG SCH (08:42)
[2017-03-10] MEDS: FAMOTIDINE 20MG TABLET GT SCH ×2 (08:42→20:26)
[2017-03-10] MEDS: LORAZEPAM 2MG/ML CPJ IV PRN ×2 (08:43→20:32)
[2017-03-10] MEDS: MIDODRINE HCL 5MG TABLET NG SCH ×2 (08:46→16:09)
[2017-03-10] MEDS: ATORVASTATIN CALCIUM 20MG TABLET GT SCH (20:26)
[2017-03-10] MEDS: DIPHENHYDRAMINE 50MG/ML VIAL IV PRN (20:32)
[2017-03-11] MEDS: METOCLOPRAMIDE HCL 5MG TABLET GT SCH ×3 (03:21→17:11)
[2017-03-11] MEDS: VANCOMYCIN HCL 1000 MG/20 ML ORAL PO SCH ×2 (03:22→16:25)
[2017-03-11] MEDS: BLOOD SUGAR DIAGNOSTIC STRIP TEST SCH ×3 (03:30→17:18)
[2017-03-11 04:00] VITALS: BP 125/85
[2017-03-11 08:00] VITALS: BP 132/89
[2017-03-11] MEDS: MIDODRINE HCL 5MG TABLET NG SCH ×2 (08:07→16:15)
[2017-03-11] MEDS: MULTIVITAMINS,THER W-MINERALS TABLET NG SCH (08:07)
[2017-03-11] MEDS: CARVEDILOL 3.125 MG TABLET GT SCH (08:08)
[2017-03-11] MEDS: LORAZEPAM 2MG/ML CPJ IV PRN (08:08)
[2017-03-11] MEDS: FAMOTIDINE 20MG TABLET GT SCH ×2 (08:08→21:44)
[2017-03-11] MEDS: DIPHENHYDRAMINE 50MG/ML VIAL IV PRN (08:09)
[2017-03-11] MEDS: THIAMINE HCL 100MG TABLET NG SCH (08:12)
[2017-03-11] MEDS: IPRATROPIUM/ALBUTEROL 0.5-3(2.5)MG/3ML NEB HHN SCH ×3 (09:22→20:45)
[2017-03-11 12:00] VITALS: BP 132/89
[2017-03-11] MEDS: INSULIN LISPRO 100 UNITS/ML SUBCUT SCH ×3 (12:00→17:19)
[2017-03-11 16:00] VITALS: BP 142/89
[2017-03-11 20:18] VITALS: BP 145/95
[2017-03-11] MEDS: ATORVASTATIN CALCIUM 20MG TABLET GT SCH (21:43)
[2017-03-12] VITALS (7 sets, daily range): BP systolic 135–156; BP diastolic 78–90
[2017-03-12] MEDS: METOCLOPRAMIDE HCL 5MG TABLET GT SCH ×4 (00:32→19:25)
[2017-03-12] MEDS: VANCOMYCIN HCL 1000 MG/20 ML ORAL PO SCH ×4 (01:40→19:26)
[2017-03-12] MEDS: IPRATROPIUM/ALBUTEROL 0.5-3(2.5)MG/3ML NEB HHN SCH ×3 (01:47→21:44)
[2017-03-12] MEDS: INSULIN LISPRO 100 UNITS/ML SUBCUT SCH ×4 (06:00→18:00)
[2017-03-12] MEDS: BLOOD SUGAR DIAGNOSTIC STRIP TEST SCH ×4 (06:42→18:00)
[2017-03-12 07:15] LABS: EOSINOPHILS % 1.5 % (0.0-5.0); HEMATOCRIT. 23.3 % (42.0-52.0); LYMPHOCYTES % 26.2 % (20.0-50.0); MEAN CORPUSCULAR HEMOGLOBIN 31.4 pg (28.0-32.0); MEAN CORPUSCULAR VOLUME 92.1 fL (80.0-94.0); MEAN PLATELET VOLUME 8.2 fl (7.4-10.4); MONOCYTES % 11.7 % (2.0-8.0); NEUTROPHILS % 57.6 % (40.0-76.0); PLATELET 400 x1000/uL (130-400); RED BLOOD CELL COUNT 2.54 mill/uL (4.7-6.1); RED CELL DISTRIBUTION WIDTH 18.6 % (11.6-14.6)
[2017-03-12 08:37] LABS: CARBON DIOXIDE 29 mEq/L (21-32); CHLORIDE 107 mEq/L (98-107); PHOSPHORUS 2.9 mg/dL (2.5-4.9)
[2017-03-12] MEDS: THIAMINE HCL 100MG TABLET NG SCH (09:51)
[2017-03-12] MEDS: FAMOTIDINE 20MG TABLET GT SCH (09:51)
[2017-03-12] MEDS: MULTIVITAMINS,THER W-MINERALS TABLET NG SCH (09:51)
[2017-03-12] MEDS: CARVEDILOL 3.125 MG TABLET GT SCH (09:52)
[2017-03-12] MEDS: MIDODRINE HCL 5MG TABLET NG SCH ×2 (09:56→19:25)
[2017-03-12] MEDS ORDERED: POTASSIUM CHLORIDE 20MEQ/PACKET GT NR (13:08)
[2017-03-12] MEDS ORDERED: MAGNESIUM 2 G PREMIX 50 ML IV NR (15:00)
[2017-03-12] MEDS ORDERED: LORAZEPAM 0.5MG TABLET GT PRN (17:00)
[2017-03-13] VITALS: BP 135/83
[2017-03-13] MEDS: ATORVASTATIN CALCIUM 20MG TABLET GT SCH ×2 (00:48→21:38)
[2017-03-13] MEDS: FAMOTIDINE 20MG TABLET GT SCH ×3 (00:49→21:38)
[2017-03-13] MEDS: METOCLOPRAMIDE HCL 5MG TABLET GT SCH ×5 (00:49→18:44)
[2017-03-13] MEDS: VANCOMYCIN HCL 1000 MG/20 ML ORAL PO SCH ×4 (00:50→18:34)
[2017-03-13] MEDS: BLOOD SUGAR DIAGNOSTIC STRIP TEST SCH ×4 (00:50→17:54)
[2017-03-13] MEDS: IPRATROPIUM/ALBUTEROL 0.5-3(2.5)MG/3ML NEB HHN SCH ×4 (02:06→20:52)
[2017-03-13 04:00] VITALS: BP 128/78
[2017-03-13] MEDS: INSULIN LISPRO 100 UNITS/ML SUBCUT SCH ×4 (06:00→17:54)
[2017-03-13 08:00] VITALS: BP 140/79
[2017-03-13] MEDS: THIAMINE HCL 100MG TABLET NG SCH (10:29)
[2017-03-13] MEDS: MULTIVITAMINS,THER W-MINERALS TABLET NG SCH (10:29)
[2017-03-13] MEDS: MIDODRINE HCL 5MG TABLET NG SCH ×2 (10:30→18:32)
[2017-03-13] MEDS: CARVEDILOL 3.125 MG TABLET GT SCH (10:30)
[2017-03-13 12:00] VITALS: BP 122/75
[2017-03-13] MEDS ORDERED: LACTOBACILLUS GG CAPSULE PO SCH (14:00)
[2017-03-13 16:00] VITALS: BP 142/93
== END 2017-03-13 21:57 | DRG 871 ==
LOC: ER 08:58 → EDBEDREQ 10:37 → EDBEDREQSVC 10:37 → CANRESERV 11:14 → ENRESERV 11:14 → CVICU 12:03 → EDBEDREQ 12:05 → EDBEDREQTM 12:05 → 5EST 03-02 13:44 → 6EST 03-10 23:00
PROVIDERS: ADMIT Internal Medicine; ATTEND Internal Medicine
PROC: 0DB68ZZ Excision of Stomach, Via Natural or Artificial Opening Endoscopic (ICD-10-PCS; principal; 2017-02-27 13:30)
PROC: 02HV33Z Insertion of Infusion Device into Superior Vena Cava, Percutaneous Approach (ICD-10-PCS; 2017-03-04)
PROC: B548ZZA Ultrasonography of Superior Vena Cava, Guidance (ICD-10-PCS; 2017-03-04)
PROC: 0DH63UZ Insertion of Feeding Device into Stomach, Percutaneous Approach (ICD-10-PCS; 2017-03-06)
DX: A41.9 Sepsis, unspecified organism (principal); G93.41 Metabolic encephalopathy; J96.00 Acute respiratory failure, unspecified whether with hypoxia or hypercapnia; K72.00 Acute and subacute hepatic failure without coma; N17.0 Acute kidney failure with tubular necrosis; E43 Unspecified severe protein-calorie malnutrition; R65.21 Severe sepsis with septic shock; A04.72 Enterocolitis due to Clostridium difficile, not specified as recurrent; K85.20 Alcohol induced acute pancreatitis without necrosis or infection; D62 Acute posthemorrhagic anemia; D68.9 Coagulation defect, unspecified; E87.0 Hyperosmolality and hypernatremia; E87.1 Hypo-osmolality and hyponatremia; F10.239 Alcohol dependence with withdrawal, unspecified; J98.11 Atelectasis; K57.92 Diverticulitis of intestine, part unspecified, without perforation or abscess without bleeding; M62.82 Rhabdomyolysis; N39.0 Urinary tract infection, site not specified; R18.8 Other ascites; K92.2 Gastrointestinal hemorrhage, unspecified; Z68.1 Body mass index [BMI] 19.9 or less, adult; C61 Malignant neoplasm of prostate; D69.6 Thrombocytopenia, unspecified; E11.22 Type 2 diabetes mellitus with diabetic chronic kidney disease; E11.649 Type 2 diabetes mellitus with hypoglycemia without coma; E11.65 Type 2 diabetes mellitus with hyperglycemia; E78.1 Pure hyperglyceridemia; E83.39 Other disorders of phosphorus metabolism; E83.42 Hypomagnesemia; E86.0 Dehydration; E86.1 Hypovolemia; E87.5 Hyperkalemia; E87.6 Hypokalemia; F17.210 Nicotine dependence, cigarettes, uncomplicated; I12.9 Hypertensive chronic kidney disease with stage 1 through stage 4 chronic kidney disease, or unspecified chronic kidney disease; K29.60 Other gastritis without bleeding; K44.9 Diaphragmatic hernia without obstruction or gangrene; K70.9 Alcoholic liver disease, unspecified; N18.9 Chronic kidney disease, unspecified; N40.1 Benign prostatic hyperplasia with lower urinary tract symptoms; R13.10 Dysphagia, unspecified; R33.8 Other retention of urine; E83.51 Hypocalcemia; Z82.5 Family history of asthma and other chronic lower respiratory diseases; Z78.1 Physical restraint status; Z85.46 Personal history of malignant neoplasm of prostate; Z90.79 Acquired absence of other genital organ(s); Z93.1 Gastrostomy status; Z79.82 Long term (current) use of aspirin
CPT/HCPCS: 36415; 36569; 36600; 70450; 71010; 74176; 76705; 76937; 80048; 80053; 80061; 80076; 81001; 82140; 82150; 82270; 82330; 82375; 82550; 82553; 82607; 82728; 82746; 82805; 82962; 83036; 83540; 83550; 83605; 83615; 83690; 83735; 83880; 84100; 84156; 84439; 84443; 84484; 85014; 85018; 85025; 85027; 85379; 85610; 85730; 86705; 86709; 86803; 87040; 87086; 87340; 87493; 88305; 88312; 88313; 92610; 93005; 93306; 93970; 93971; 94640; 94664; 94667; 96365; 96368; 96375; 97110; 97161; 97165; 97530; 99291; A4216; A6261; C1725; C9113; G0482; J0690; J1200; J1815; J2060; J2250; J2354; J2370; J2405; J2543; J2765; J3010; J3370; J3411; J3475; J3480; J3490; J7030; J7040; J7042; J7050; J7060; J7070; J7620; J8597; A4315

== ENCOUNTER 2017-04-01 18:40 | Inpatient (IN) | payer MEDICARE ==
[~2017-04-01] VITALS: Ht 160 cm; Wt 48.5 kg
[2017-04-01] MEDS ORDERED: ONDANSETRON HCL 4MG/2ML VIAL IV PRN (19:45)
[2017-04-01] MEDS ORDERED: DIPHENHYDRAMINE 50MG/ML VIAL IV PRN (19:45)
[2017-04-01] MEDS ORDERED: LORAZEPAM 0.5MG TABLET GT PRN (19:45)
[2017-04-01] MEDS ORDERED: DEXTROSE 50% WATER 50ML SYRINGE IV PRN (19:45)
[2017-04-01] MEDS ORDERED: IPRATROPIUM/ALBUTEROL 0.5-3(2.5)MG/3ML NEB HHN PRN (19:45)
[2017-04-01] MEDS ORDERED: SIMETHICONE 80MG TABLET CHEW GT PRN (19:45)
[2017-04-01 19:50] VITALS: BP 100/62
[2017-04-01 20:00] VITALS: BP 100/62
[2017-04-01] MEDS: ATORVASTATIN CALCIUM 20MG TABLET GT SCH (21:14)
[2017-04-01] MEDS: FAMOTIDINE 20MG TABLET GT SCH (21:15)
[2017-04-01] MEDS: MIDODRINE HCL 5MG TABLET GT SCH (21:15)
[2017-04-01] MEDS: MIRTAZAPINE 15MG TABLET GT SCH (21:15)
[2017-04-01 21:50] LABS: CLARITY URINE CLEAR (CLEAR); COLOR URINE YELLOW (YELLOW); KETONES URINE NEGATIVE (NEGATIVE); LEUKOCYTE ESTERASE URINE 1+ (NEGATIVE); NITRITE URINE NEGATIVE (NEGATIVE); OCCULT BLOOD URINE NEGATIVE (NEGATIVE); PH URINE 6.5 (4.5-8.0); PROTEIN URINE NEGATIVE (NEGATIVE); SPECIFIC GRAVITY URINE 1.015 (1.005-1.030); UROBILINOGEN URINE 0.2 E.U./dL (0.2-1.0)
[2017-04-01] MEDS: IPRATROPIUM/ALBUTEROL 0.5-3(2.5)MG/3ML NEB HHN SCH (23:27)
[2017-04-02 05:46] LABS: HEMATOCRIT. 29.5 % (42.0-52.0); HEMOGLOBIN. 9.8 g/dL (14.0-18.0); MEAN CORPUSCULAR HEMOGLOBIN 29.8 pg (28.0-32.0); MEAN CORPUSCULAR VOLUME 89.8 fL (80.0-94.0); MEAN PLATELET VOLUME 7.7 fl (7.4-10.4); PLATELET 342 x1000/uL (130-400); RED BLOOD CELL COUNT 3.28 mill/uL (4.7-6.1); RED CELL DISTRIBUTION WIDTH 17.2 % (11.6-14.6)
[2017-04-02 06:08] LABS: CARBON DIOXIDE 31 mEq/L (21-32); CHLORIDE 101 mEq/L (98-107)
[2017-04-02] MEDS: LACTULOSE 20G/30ML UDC GT SCH (08:11)
[2017-04-02] MEDS: MULTIVITAMINS,THER W-MINERALS TABLET GT SCH (08:11)
[2017-04-02] MEDS: FAMOTIDINE 20MG TABLET GT SCH ×2 (08:12→21:24)
[2017-04-02] MEDS: CARVEDILOL 3.125 MG TABLET GT SCH (08:12)
[2017-04-02] MEDS: MIDODRINE HCL 5MG TABLET GT SCH ×2 (08:12→21:25)
[2017-04-02] MEDS: LACTOBACILLUS GG CAPSULE GT SCH (08:12)
[2017-04-02] MEDS: THIAMINE HCL 100MG TABLET GT SCH (08:12)
[2017-04-02 08:25] VITALS: BP 112/65
[2017-04-02] MEDS ORDERED: FAMOTIDINE 20MG TABLET GT SCH (09:00)
[2017-04-02] MEDS: IPRATROPIUM/ALBUTEROL 0.5-3(2.5)MG/3ML NEB HHN SCH ×3 (09:06→21:34)
[2017-04-02] MEDS: BUDESONIDE 0.5MG/2ML NEB HHN SCH ×2 (14:25→21:34)
[2017-04-02 16:55] LABS: PLATELET ESTIMATE NORMAL
[2017-04-02 20:00] VITALS: BP 124/70
[2017-04-02] MEDS: ATORVASTATIN CALCIUM 20MG TABLET GT SCH (21:23)
[2017-04-02] MEDS: MIRTAZAPINE 15MG TABLET GT SCH (21:25)
[2017-04-03] MEDS: IPRATROPIUM/ALBUTEROL 0.5-3(2.5)MG/3ML NEB HHN SCH ×4 (02:35→21:28)
[2017-04-03] MEDS: BUDESONIDE 0.5MG/2ML NEB HHN SCH ×2 (07:22→21:28)
[2017-04-03 08:00] VITALS: BP 101/64
[2017-04-03] MEDS: FAMOTIDINE 20MG TABLET GT SCH ×2 (08:20→21:08)
[2017-04-03] MEDS: LACTOBACILLUS GG CAPSULE GT SCH (08:20)
[2017-04-03] MEDS: THIAMINE HCL 100MG TABLET GT SCH (08:20)
[2017-04-03] MEDS: MIDODRINE HCL 5MG TABLET GT SCH ×2 (08:21→21:08)
[2017-04-03] MEDS: MULTIVITAMINS,THER W-MINERALS TABLET GT SCH (08:21)
[2017-04-03] MEDS: CARVEDILOL 3.125 MG TABLET GT SCH (08:23)
[2017-04-03] MEDS: LACTULOSE 20G/30ML UDC GT SCH (08:23)
[2017-04-03 20:25] VITALS: BP 101/65
[2017-04-03] MEDS: ATORVASTATIN CALCIUM 20MG TABLET GT SCH (21:07)
[2017-04-03] MEDS: MIRTAZAPINE 15MG TABLET GT SCH (21:07)
[2017-04-04 08:00] VITALS: BP 102/60
[2017-04-04] MEDS: BUDESONIDE 0.5MG/2ML NEB HHN SCH ×2 (08:00→20:29)
[2017-04-04] MEDS: IPRATROPIUM/ALBUTEROL 0.5-3(2.5)MG/3ML NEB HHN SCH ×4 (08:00→20:29)
[2017-04-04] MEDS: LACTOBACILLUS GG CAPSULE GT SCH (08:43)
[2017-04-04] MEDS: FAMOTIDINE 20MG TABLET GT SCH ×2 (08:43→21:30)
[2017-04-04] MEDS: MIDODRINE HCL 5MG TABLET GT SCH ×2 (08:43→21:29)
[2017-04-04] MEDS: THIAMINE HCL 100MG TABLET GT SCH (08:43)
[2017-04-04] MEDS: MULTIVITAMINS,THER W-MINERALS TABLET GT SCH (08:43)
[2017-04-04] MEDS: CARVEDILOL 3.125 MG TABLET GT SCH (08:44)
[2017-04-04] MEDS: LACTULOSE 20G/30ML UDC GT SCH (08:44)
[2017-04-04 20:00] VITALS: BP 102/64
[2017-04-04] MEDS: ATORVASTATIN CALCIUM 20MG TABLET GT SCH (21:29)
[2017-04-04] MEDS: MIRTAZAPINE 15MG TABLET GT SCH (21:30)
[2017-04-05] MEDS: IPRATROPIUM/ALBUTEROL 0.5-3(2.5)MG/3ML NEB HHN SCH ×4 (02:15→21:12)
[2017-04-05 08:00] VITALS: BP 114/67
[2017-04-05] MEDS: BUDESONIDE 0.5MG/2ML NEB HHN SCH (08:24)
[2017-04-05] MEDS: LACTULOSE 20G/30ML UDC GT SCH (09:00)
[2017-04-05] MEDS: CARVEDILOL 3.125 MG TABLET GT SCH (09:23)
[2017-04-05] MEDS: THIAMINE HCL 100MG TABLET GT SCH (09:23)
[2017-04-05] MEDS: LACTOBACILLUS GG CAPSULE GT SCH (09:23)
[2017-04-05] MEDS: FAMOTIDINE 20MG TABLET GT SCH ×2 (09:23→21:20)
[2017-04-05] MEDS: MIDODRINE HCL 5MG TABLET GT SCH ×2 (09:23→21:20)
[2017-04-05] MEDS: MULTIVITAMINS,THER W-MINERALS TABLET GT SCH (09:23)
[2017-04-05 20:00] VITALS: BP 105/65
[2017-04-05] MEDS: MIRTAZAPINE 15MG TABLET GT SCH (21:19)
[2017-04-05] MEDS: ATORVASTATIN CALCIUM 20MG TABLET GT SCH (21:19)
[2017-04-06] MEDS: IPRATROPIUM/ALBUTEROL 0.5-3(2.5)MG/3ML NEB HHN SCH ×4 (01:19→20:07)
[2017-04-06] MEDS: LACTULOSE 20G/30ML UDC GT SCH (07:32)
[2017-04-06 08:00] VITALS: BP 110/66
[2017-04-06] MEDS: CARVEDILOL 3.125 MG TABLET GT SCH ×2 (08:37→09:23)
[2017-04-06] MEDS: THIAMINE HCL 100MG TABLET GT SCH (09:23)
[2017-04-06] MEDS: MIDODRINE HCL 5MG TABLET GT SCH ×2 (09:24→22:06)
[2017-04-06] MEDS: MULTIVITAMINS,THER W-MINERALS TABLET GT SCH (09:24)
[2017-04-06] MEDS: LACTOBACILLUS GG CAPSULE GT SCH (09:24)
[2017-04-06] MEDS: FAMOTIDINE 20MG TABLET GT SCH ×2 (09:25→22:06)
[2017-04-06 20:00] VITALS: BP 103/66
[2017-04-06] MEDS: MIRTAZAPINE 15MG TABLET GT SCH (22:07)
[2017-04-06] MEDS: ATORVASTATIN CALCIUM 20MG TABLET GT SCH (22:07)
[2017-04-07] MEDS: IPRATROPIUM/ALBUTEROL 0.5-3(2.5)MG/3ML NEB HHN SCH ×2 (01:16→07:15)
[2017-04-07 08:00] VITALS: BP_SYST 132; BP_SYST 135; BP_DIAS 92
[2017-04-07] MEDS: LACTULOSE 20G/30ML UDC GT SCH (08:02)
[2017-04-07] MEDS: MULTIVITAMINS,THER W-MINERALS TABLET GT SCH (08:54)
[2017-04-07] MEDS: THIAMINE HCL 100MG TABLET GT SCH (08:54)
[2017-04-07] MEDS: FAMOTIDINE 20MG TABLET GT SCH ×2 (08:54→22:10)
[2017-04-07] MEDS: LACTOBACILLUS GG CAPSULE GT SCH (08:55)
[2017-04-07] MEDS: MIDODRINE HCL 5MG TABLET GT SCH ×2 (08:55→22:09)
[2017-04-07] MEDS: CARVEDILOL 3.125 MG TABLET GT SCH (08:56)
[2017-04-07 20:00] VITALS: BP 95/60
[2017-04-07] MEDS: ATORVASTATIN CALCIUM 20MG TABLET GT SCH (22:09)
[2017-04-07] MEDS: MIRTAZAPINE 15MG TABLET GT SCH (22:10)
[2017-04-08 08:00] VITALS: BP 106/64
[2017-04-08] MEDS: LACTULOSE 20G/30ML UDC GT SCH (09:00)
[2017-04-08] MEDS: CARVEDILOL 3.125 MG TABLET GT SCH (09:00)
[2017-04-08] MEDS: FAMOTIDINE 20MG TABLET GT SCH ×2 (09:15→22:13)
[2017-04-08] MEDS: THIAMINE HCL 100MG TABLET GT SCH (09:16)
[2017-04-08] MEDS: MULTIVITAMINS,THER W-MINERALS TABLET GT SCH (09:16)
[2017-04-08] MEDS: LACTOBACILLUS GG CAPSULE GT SCH (09:17)
[2017-04-08] MEDS: MIDODRINE HCL 5MG TABLET GT SCH ×2 (09:17→22:14)
[2017-04-08 20:00] VITALS: BP 110/68
[2017-04-08] MEDS: MIRTAZAPINE 15MG TABLET GT SCH (22:13)
[2017-04-08] MEDS: ATORVASTATIN CALCIUM 20MG TABLET GT SCH (22:14)
[2017-04-09 08:00] VITALS: BP 108/64
[2017-04-09] MEDS: MULTIVITAMINS,THER W-MINERALS TABLET GT SCH (08:34)
[2017-04-09] MEDS: FAMOTIDINE 20MG TABLET GT SCH ×2 (08:34→20:56)
[2017-04-09] MEDS: THIAMINE HCL 100MG TABLET GT SCH (08:34)
[2017-04-09] MEDS: LACTOBACILLUS GG CAPSULE GT SCH (08:34)
[2017-04-09] MEDS: MIDODRINE HCL 5MG TABLET GT SCH ×2 (08:35→20:57)
[2017-04-09] MEDS: CARVEDILOL 3.125 MG TABLET GT SCH (08:35)
[2017-04-09 20:00] VITALS: BP 109/68
[2017-04-09] MEDS: ATORVASTATIN CALCIUM 20MG TABLET GT SCH (20:56)
[2017-04-09] MEDS: MIRTAZAPINE 15MG TABLET GT SCH (20:57)
[2017-04-10 08:00] VITALS: BP 114/70
[2017-04-10] MEDS: LACTOBACILLUS GG CAPSULE GT SCH (08:51)
[2017-04-10] MEDS: THIAMINE HCL 100MG TABLET GT SCH (08:51)
[2017-04-10] MEDS: FAMOTIDINE 20MG TABLET GT SCH ×2 (08:51→20:50)
[2017-04-10] MEDS: MIDODRINE HCL 5MG TABLET GT SCH ×2 (08:52→20:51)
[2017-04-10] MEDS: MULTIVITAMINS,THER W-MINERALS TABLET GT SCH (08:52)
[2017-04-10] MEDS: CARVEDILOL 3.125 MG TABLET GT SCH (08:52)
[2017-04-10 20:00] VITALS: BP 105/67
[2017-04-10] MEDS: ATORVASTATIN CALCIUM 20MG TABLET GT SCH (20:50)
[2017-04-10] MEDS: MIRTAZAPINE 15MG TABLET GT SCH (20:51)
[2017-04-11 08:04] VITALS: BP 105/68
[2017-04-11 08:35] VITALS: BP 133/46
[2017-04-11] MEDS: MULTIVITAMINS,THER W-MINERALS TABLET GT SCH (08:35)
[2017-04-11] MEDS: THIAMINE HCL 100MG TABLET GT SCH (08:35)
[2017-04-11] MEDS: FAMOTIDINE 20MG TABLET GT SCH ×2 (08:35→20:37)
[2017-04-11] MEDS: MIDODRINE HCL 5MG TABLET GT SCH ×2 (08:35→20:37)
[2017-04-11] MEDS: LACTOBACILLUS GG CAPSULE GT SCH (08:35)
[2017-04-11] MEDS: CARVEDILOL 3.125 MG TABLET GT SCH (08:36)
[2017-04-11 20:00] VITALS: BP 103/63
[2017-04-11] MEDS: ATORVASTATIN CALCIUM 20MG TABLET GT SCH (20:37)
[2017-04-11] MEDS: MIRTAZAPINE 15MG TABLET GT SCH (20:37)
[2017-04-12 07:13] LABS: BASOPHILS % 0.9 % (0.0-2.0); EOSINOPHILS % 11.6 % (0.0-5.0); HEMATOCRIT. 31.1 % (42.0-52.0); HEMOGLOBIN. 10.6 g/dL (14.0-18.0); LYMPHOCYTES % 45.2 % (20.0-50.0); MEAN CORPUSCULAR VOLUME 88.3 fL (80.0-94.0); MEAN PLATELET VOLUME 7.6 fl (7.4-10.4); MONOCYTES % 10.6 % (2.0-8.0); NEUTROPHILS % 31.7 % (40.0-76.0); PLATELET 265 x1000/uL (130-400); RED BLOOD CELL COUNT 3.52 mill/uL (4.7-6.1); RED CELL DISTRIBUTION WIDTH 16.2 % (11.6-14.6)
[2017-04-12 08:00] VITALS: BP 110/49
[2017-04-12 08:20] LABS: CARBON DIOXIDE 27 mEq/L (21-32); CHLORIDE 105 mEq/L (98-107)
[2017-04-12] MEDS: CARVEDILOL 3.125 MG TABLET GT SCH (09:00)
[2017-04-12] MEDS: MULTIVITAMINS,THER W-MINERALS TABLET GT SCH (09:16)
[2017-04-12] MEDS: FAMOTIDINE 20MG TABLET GT SCH ×2 (09:16→21:47)
[2017-04-12] MEDS: MIDODRINE HCL 5MG TABLET GT SCH ×2 (09:16→21:47)
[2017-04-12] MEDS: LACTOBACILLUS GG CAPSULE GT SCH (09:16)
[2017-04-12] MEDS: THIAMINE HCL 100MG TABLET GT SCH (09:16)
[2017-04-12 20:07] VITALS: BP 116/72
[2017-04-12] MEDS: ATORVASTATIN CALCIUM 20MG TABLET GT SCH (21:47)
[2017-04-12] MEDS: MIRTAZAPINE 15MG TABLET GT SCH (21:48)
[2017-04-13 08:00] VITALS: BP 123/81
[2017-04-13] MEDS: THIAMINE HCL 100MG TABLET GT SCH (08:23)
[2017-04-13] MEDS: LACTOBACILLUS GG CAPSULE GT SCH (08:23)
[2017-04-13] MEDS: FAMOTIDINE 20MG TABLET GT SCH ×2 (08:23→20:38)
[2017-04-13] MEDS: MULTIVITAMINS,THER W-MINERALS TABLET GT SCH (08:23)
[2017-04-13] MEDS: CARVEDILOL 3.125 MG TABLET GT SCH (08:24)
[2017-04-13] MEDS: MIDODRINE HCL 5MG TABLET GT SCH ×2 (08:25→20:38)
[2017-04-13 20:00] VITALS: BP 104/64
[2017-04-13] MEDS: ATORVASTATIN CALCIUM 20MG TABLET GT SCH (20:37)
[2017-04-13] MEDS: MIRTAZAPINE 15MG TABLET GT SCH (20:38)
[2017-04-14 08:00] VITALS: BP_SYST 105; BP_SYST 116; BP_DIAS 42; BP_DIAS 76
[2017-04-14] MEDS: FAMOTIDINE 20MG TABLET GT SCH (09:04)
[2017-04-14] MEDS: LACTOBACILLUS GG CAPSULE GT SCH (09:04)
[2017-04-14] MEDS: THIAMINE HCL 100MG TABLET GT SCH (09:04)
[2017-04-14] MEDS: MULTIVITAMINS,THER W-MINERALS TABLET GT SCH (09:05)
[2017-04-14] MEDS: CARVEDILOL 3.125 MG TABLET GT SCH (09:05)
[2017-04-14] MEDS: MIDODRINE HCL 5MG TABLET GT SCH (09:06)
[2017-04-14 16:06] VITALS: BP 116/76
== END 2017-04-14 17:33 | disposition home or self-care (01) | DRG 71 ==
PROVIDERS: ADMIT Psychiatry & Neurology Neurology; ATTEND Internal Medicine Critical Care Medicine
DX: G93.40 Encephalopathy, unspecified (principal); M62.82 Rhabdomyolysis; J44.9 Chronic obstructive pulmonary disease, unspecified; K57.92 Diverticulitis of intestine, part unspecified, without perforation or abscess without bleeding; E83.39 Other disorders of phosphorus metabolism; G62.9 Polyneuropathy, unspecified; N39.0 Urinary tract infection, site not specified; R13.10 Dysphagia, unspecified; N18.9 Chronic kidney disease, unspecified; N40.1 Benign prostatic hyperplasia with lower urinary tract symptoms; R62.7 Adult failure to thrive; F17.210 Nicotine dependence, cigarettes, uncomplicated; R53.81 Other malaise; I12.9 Hypertensive chronic kidney disease with stage 1 through stage 4 chronic kidney disease, or unspecified chronic kidney disease; K29.60 Other gastritis without bleeding; K44.9 Diaphragmatic hernia without obstruction or gangrene; F10.10 Alcohol abuse, uncomplicated; D64.9 Anemia, unspecified; R33.8 Other retention of urine; K70.30 Alcoholic cirrhosis of liver without ascites; K59.00 Constipation, unspecified; Z85.46 Personal history of malignant neoplasm of prostate; Z90.79 Acquired absence of other genital organ(s); Z79.82 Long term (current) use of aspirin; Z87.01 Personal history of pneumonia (recurrent); Z79.899 Other long term (current) drug therapy
CPT/HCPCS: 36415; 71010; 80048; 80076; 81001; 85025; 87086; 87493; 92523; 92610; 93970; 94640; 97110; 97112; 97116; 97162; 97166; 97530; 97532; 97535; J7620; J7626; A5200